=== PATIENT | male | born 1955 | race Caucasian/White ===

== ENCOUNTER → 2021-08-21 | Outpatient (CLI) | payer BC ==
[2021-08-21 08:36] LABS: Hematocrit 45.2 % (37.0-53.0); Hemoglobin 15.6 g/dL (13.5-17.5); Mean Corpuscular HGB 30.4 pg (26.0-34.0); Mean Corpuscular HGB Conc 34.5 g/dL (31.5-36.5); Mean Corpuscular Volume 88 fL (80-100); Mean Platelet Volume 9.4 fL (9.1-12.4); Platelet Count 168 K/mm3 (150-400); RDW Coefficient Variation 12.4 % (11.7-14.2); RDW Standard Deviation 39.8 fL (35.1-46.3); Red Blood Cell Count 5.13 M/mm3 (4.30-5.90); White Blood Cell Count 4.77 K/mm3 (4.00-11.30)
[2021-08-21 08:56] LABS: Alanine Aminotransfer (ALT/SGP 31 U/L (12-78); Albumin, Blood 3.8 g/dL (3.4-5.0); Albumin/Globulin Ratio 1.3 (0.8-1.8); Alk Phos 77 U/L (40-126); Anion Gap 9 mmol/L (6-16); Aspartate Aminotrans (AST/SGOT 15 U/L (12-37); Bilirubin, Total 0.6 mg/dL (0.1-1.0); Blood Urea Nitrogen 13 mg/dL (8-24); Bun/Creatinine Ratio 12.7 (12.0-20.0); CO2, Blood 29 mmol/L (21-32); Calcium, Blood 9.2 mg/dL (8.5-10.1); Chloride, Blood 105 mmol/L (98-108); Creatinine, Blood 1.02 mg/dL (0.60-1.20); Globulin, Blood 2.9 g/dL (2.2-4.0); Glomerular Filtration Rate >60 (60-); Glucose, Blood 127 mg/dL (70-99); Potassium, Blood 4.5 mmol/L (3.5-5.5); Sodium, Blood 143 mmol/L (136-145); Thyroid Stimulating Hormone 1.291 uIU/mL (0.360-4.800); Total Protein, Blood 6.7 g/dL (6.4-8.2)
[2021-08-21 09:12] LABS: BASOPHILS ABSOLUTE AUTO 0.03 K/mm3 (0.00-0.23); BASOPHILS PERCENT AUTO 1 % (0-2); EOSINOPHILS ABSOLUTE AUTO 0.24 K/mm3 (0.00-0.68); EOSINOPHILS PERCENT AUTO 5 % (0-6); IMMATURE GRAN ABSOLUTE AUTO 0.03 K/mm3 (0.00-0.10); IMMATURE GRAN PERCENT AUTO 1 % (0-1); LYMPHOCYTES ABSOLUTE AUTO 0.84 K/mm3 (0.84-5.20); LYMPHOCYTES PERCENT AUTO 17 % (21-46); MONOCYTES ABSOLUTE AUTO 0.39 K/mm3 (0.16-1.47); MONOCYTES PERCENT AUTO 8 % (4-13); NEUTROPHILS ABSOLUTE AUTO 3.32 K/mm3 (1.96-9.15); NEUTROPHILS PERCENT AUTO 69 % (41-73)
[2021-08-21 09:36] LABS: Free Thyroxine 0.88 ng/dL (0.70-1.60)
[2021-08-21 09:37] LABS: Troponin I <0.017 ng/mL (0.000-0.040)
== END | disposition home or self-care (01) ==
LOC: LAB SHORT 08:29
PROVIDERS: General Practice
DX: I10 Essential (primary) hypertension (principal); R53.81 Other malaise
CPT/HCPCS: 80053; 84439; 84443; 84484; 85025

== ENCOUNTER → 2021-09-19 | Outpatient (CLI) | payer MEDICARE ==
[2021-09-20 09:10] LABS: CHOLESTEROL, TOTAL 211 mg/dL (100-199); HDL CHOLESTEROL 35 mg/dL (>39); LDL CHOLESTEROL CALC 147 mg/dL (0-99); TRIGLYCERIDES 159 mg/dL (0-149); VLDL CHOLESTEROL CAL 29 mg/dL (5-40)
== END ==
LOC: LAB SHORT 12:28
PROVIDERS: Student in an Organized Health Care Education/Training Program
DX: E78.5 Hyperlipidemia, unspecified (principal)
CPT/HCPCS: 80061

== ENCOUNTER → 2024-04-27 | Outpatient (CLI) | payer OTHER ==
[2024-04-27 10:38] LABS: BASOPHILS ABSOLUTE AUTO 0.05 K/mm3 (0.00-0.23); BASOPHILS PERCENT AUTO 1 % (0-2); EOSINOPHILS ABSOLUTE AUTO 0.41 K/mm3 (0.00-0.68); EOSINOPHILS PERCENT AUTO 8 % (0-6); Hematocrit 42.4 % (37.0-53.0); Hemoglobin 15.1 g/dL (13.5-17.5); IMMATURE GRAN ABSOLUTE AUTO 0.03 K/mm3 (0.00-0.10); IMMATURE GRAN PERCENT AUTO 1 % (0-1); LYMPHOCYTES ABSOLUTE AUTO 1.19 K/mm3 (0.84-5.20); LYMPHOCYTES PERCENT AUTO 24 % (21-46); MONOCYTES ABSOLUTE AUTO 0.44 K/mm3 (0.16-1.47); MONOCYTES PERCENT AUTO 9 % (4-13); Mean Corpuscular HGB 31.8 pg (26.0-34.0); Mean Corpuscular HGB Conc 35.6 g/dL (31.5-36.5); Mean Corpuscular Volume 89 fL (80-100); Mean Platelet Volume 9.9 fL (9.1-12.4); NEUTROPHILS PERCENT AUTO 58 % (41-73); Platelet Count 185 K/mm3 (150-400); RDW Coefficient Variation 12.4 % (11.7-14.2); RDW Standard Deviation 40.5 fL (35.1-46.3); Red Blood Cell Count 4.75 M/mm3 (4.30-5.90); White Blood Cell Count 5.02 K/mm3 (4.00-11.30)
[2024-04-27 10:54] LABS: Alanine Aminotransfer (ALT/SGP 34 U/L (12-78); Albumin, Blood 3.9 g/dL (3.4-5.0); Albumin/Globulin Ratio 1.1 (0.8-1.8); Alk Phos 70 U/L (50-136); Anion Gap 13 mmol/L (3-11); Aspartate Aminotrans (AST/SGOT 19 U/L (12-37); Bilirubin, Total 0.5 mg/dL (0.1-1.0); Blood Urea Nitrogen 22 mg/dL (8-24); Bun/Creatinine Ratio 22.5 (12.0-20.0); CHOL/HDL RATIO 6.1; CO2, Blood 25 mmol/L (21-32); Calcium, Blood 8.9 mg/dL (8.5-10.1); Chloride, Blood 109 mmol/L (98-108); Cholesterol 252 mg/dL (50-200); Creatinine, Blood 0.98 mg/dL (0.60-1.20); Globulin, Blood 3.4 g/dL (2.2-4.0); Glomerular Filtration Rate 83 (60-); Glucose, Blood 110 mg/dL (70-99); HDL Cholesterol 41 mg/dL (>39); Low Density Lipoprotein Chol 164 mg/dL (0-110); Potassium, Blood 3.7 mmol/L (3.5-5.5); Sodium, Blood 143 mmol/L (136-145); Total Protein, Blood 7.3 g/dL (6.4-8.2); Triglycerides 233 mg/dL (30-160); Very Low Density Lipoprot Chol 46 mg/dL (6-32)
[2024-04-29 11:01] LABS: APOLIPOPROTEIN B 163 mg/dL (66-133)
[2024-04-29 14:16] LABS: LIPOPROTEIN (A) 17 mg/dL (<=29)
== END | disposition home or self-care (01) ==
LOC: LAB 08:30 → LAB SHORT 08:30
PROVIDERS: Internal Medicine
DX: Z12.5 Encounter for screening for malignant neoplasm of prostate (principal); E78.5 Hyperlipidemia, unspecified; I10 Essential (primary) hypertension; R73.9 Hyperglycemia, unspecified; Z98.890 Other specified postprocedural states
CPT/HCPCS: 80053; 80061; 82172; 83036; 83695; 85025; G0103

== ENCOUNTER 2024-06-16 12:35 | Observation (INO) | payer OTHER ==
[~2024-06-16] VITALS: Ht 185.4 cm; Wt 109.4 kg
[2024-06-16 13:22] LABS: BASOPHILS ABSOLUTE AUTO 0.04 K/mm3 (0.00-0.23); BASOPHILS PERCENT AUTO 1 % (0-2); EOSINOPHILS ABSOLUTE AUTO 0.15 K/mm3 (0.00-0.68); EOSINOPHILS PERCENT AUTO 3 % (0-6); Hematocrit 43.9 % (37.0-53.0); Hemoglobin 15.5 g/dL (13.5-17.5); IMMATURE GRAN ABSOLUTE AUTO 0.01 K/mm3 (0.00-0.10); IMMATURE GRAN PERCENT AUTO 0 % (0-1); LYMPHOCYTES ABSOLUTE AUTO 1.26 K/mm3 (0.84-5.20); LYMPHOCYTES PERCENT AUTO 23 % (21-46); MONOCYTES ABSOLUTE AUTO 0.36 K/mm3 (0.16-1.47); MONOCYTES PERCENT AUTO 7 % (4-13); Mean Corpuscular HGB 31.3 pg (26.0-34.0); Mean Corpuscular HGB Conc 35.3 g/dL (31.5-36.5); Mean Corpuscular Volume 89 fL (80-100); Mean Platelet Volume 9.8 fL (9.1-12.4); NEUTROPHILS ABSOLUTE AUTO 3.56 K/mm3 (1.96-9.15); NEUTROPHILS PERCENT AUTO 66 % (41-73); Platelet Count 173 K/mm3 (150-400); RDW Standard Deviation 38.8 fL (35.1-46.3); Red Blood Cell Count 4.96 M/mm3 (4.30-5.90); White Blood Cell Count 5.38 K/mm3 (4.00-11.30)
[2024-06-16 13:34] LABS: Albumin/Globulin Ratio 1.2 (0.8-1.8); Bilirubin, Total 0.6 mg/dL (0.1-1.0); Bun/Creatinine Ratio 15.1 (12.0-20.0); Calcium, Blood 9.8 mg/dL (8.5-10.1); Creatinine, Blood 0.99 mg/dL (0.60-1.20); Globulin, Blood 3.2 g/dL (2.2-4.0); Magnesium, Blood 2.2 mg/dL (1.6-2.4); Potassium, Blood 3.9 mmol/L (3.5-5.5); Total Protein, Blood 7.2 g/dL (6.4-8.2)
[2024-06-16] MEDS ORDERED: [UNRECOGNIZED DRUG - OTHER] PO (13:49)
[2024-06-16 14:38] LABS: Source, Urine Clean Catch
[2024-06-16 14:48] LABS: Appearance, Urine Clear (Clear); Bilirubin, Urine Neg (Neg); Blood, Urine Neg (Neg); Color, Urine Yellow (P-Yellow); Glucose Qualitative, Urine Neg (Neg); Ketones, Urine Neg (Neg); Leukocyte Esterase, Urine Neg (Neg); Nitrite, Urine Neg (Neg); Protein, Urine Neg (Neg); Specific Gravity, Urine 1.015 (1.003-1.022); Urobilinogen, Urine NORM (Normal); pH, Urine 6.5 (5.0-8.0)
[2024-06-16] MEDS ORDERED: FLU VACC TS2024-25(6MOS UP)/PF 45 MCG/0.5 ML SYRINGE IM ONE (18:00)
[2024-06-16] MEDS ORDERED: NS 1,000 ML IV SCH (18:00)
[2024-06-16] MEDS ORDERED: Ondansetron HCl 2 MG / ML 2ML Vial IV PRN (18:00)
[2024-06-16] MEDS ORDERED: Aspirin 81 MG Chew PO ONE (18:05)
[2024-06-16 19:58] VITALS: BP 154/83
[2024-06-16] MEDS ORDERED: Diflucan150 MG PO (21:29)
[2024-06-17 04:13] VITALS: BP 132/87
[2024-06-17 07:20] VITALS: BP 133/87
[2024-06-17] MEDS ORDERED: Aspirin 81 MG Chew PO SCH (09:00)
[2024-06-17] MEDS ORDERED: Enoxaparin 40 MG/0.4 ML SYR SC SCH (09:00)
[2024-06-17] MEDS ORDERED: Atorvastatin 40 MG Tab PO SCH (09:00)
[2024-06-17 15:03] VITALS: BP 133/92
--- NOTE | 2024-06-17 17:50 | NUR ---
SHIFT SUMMARY PT AWAKE AT START OF SHIFT, SITTING UPRIGHT IN BED, WATCHING TV. PT IS A&O, AND MOSTLY CO-OP WITH CARE. PT CAN BE IMPULSIVE, TRYING TO BE INDEPENDENT. ADMITTED FOR CVA. THREAD WINDER AUTOMATIC APPEAR TO BE EQUAL, BUT PT IS UNSTEADY ON LOWER EXTREMITIES. THERAPY IN TO WORK WITH PT THIS AFTERNOON, REPORTING PT NEEDING SBA FOR SAFETY AND WOULD BENEFIT FROM USING FWW. BED ALARM SET FOR SAFETY PT GOT UP ON HIS OWN TO CLOSE THE BLINDS, NOT CALLING FOR ASSIST OR WANTING ASSISTANCE ONCE STAFF IN RM TO HELP. SPEECH REMAINS SLIGHTLY SLURRED. PT'S DAUGHTER TO BRING IN BP MEDICATION WHEN SHE COMES. PT WITH PERMISSIVE HTN AT THIS TIME. DENIES PAIN. NO C/O. CALL LT IN REACH.
[2024-06-17 19:50] VITALS: BP 145/76
[2024-06-18 05:01] VITALS: BP 123/71
[2024-06-18 07:20] VITALS: BP 154/88
[2024-06-18] MEDS ORDERED: ASPI81CH PO (11:22)
[2024-06-18] MEDS ORDERED: ATOR40TA PO (11:22)
[2024-06-18] MEDS ORDERED: CLOP75 PO (11:23)
--- NOTE | 2024-06-18 13:49 | NUR ---
DISCHARGE NOTE PT DISCHARGED TO HOME, PICKED UP BY HIS DAUGHTER. IV REMOVED TELE RETURNED. DISCHARGE EDUCATION AND INFORMATION PROVIDED. MEDICATIONS FAXED TO THE PHARMACY OF HIS CHOICE. PERSONAL BELONGINGS RETURNED. NO ACUTE CHANGES PRIOR TO DC.
== END 2024-06-18 13:34 | disposition home or self-care (01) ==
LOC: ER 12:35 → MEDS 12:36 → ENPENDDIS 06-18 11:52 → MEDS 06-18 13:34
PROVIDERS: Physician Assistant; Student in an Organized Health Care Education/Training Program; ADMIT Internal Medicine
DX: I63.9 Cerebral infarction, unspecified (principal); R47.1 Dysarthria and anarthria; I10 Essential (primary) hypertension; R73.9 Hyperglycemia, unspecified; Z79.899 Other long term (current) drug therapy
CPT/HCPCS: 70450; 70496; 70498; 70551; 80053; 81003; 83735; 84484; 85025; 92523; 92610; 93005; 93010; 93306; 96372; 97110; 97162; 97530; 99285-25; A9270; G0378; J1650; J7030; Q9967